=== PATIENT | male | born 1970 | race Two or more races ===

== ENCOUNTER 2022-05-08 14:22 | Emergency (ER) | payer OTHER ==
[~2022-05-08] VITALS: Ht 177.8 cm; Wt 104.3 kg
[2022-05-08] MEDS ORDERED: TOPROL XL50 M1 PO (14:32)
[2022-05-08] MEDS ORDERED: CEPACOL SORE T1 EAC1 PO (17:50)
[2022-05-08] MEDS ORDERED: FLONASE ALLERG9.9 ML NASAL (17:50)
[2022-05-08] MEDS ORDERED: ZYRTEC10 M3 PO (17:50)
== END 2022-05-08 18:24 | disposition home or self-care (01) ==
LOC: ER 14:22
DX: J30.9 Allergic rhinitis, unspecified (principal); J04.0 Acute laryngitis

== ENCOUNTER → 2023-02-24 09:18 | Outpatient (CLI) | payer OTHER ==
[~2023-02-24 09:18] MED LIST: CEPACOL SORE T1 EAC1 PO; FLONASE ALLERG9.9 ML NASAL; TOPROL XL50 M1 PO; ZYRTEC10 M3 PO
== END | disposition home or self-care (01) ==
LOC: LAB 09:18
PROVIDERS: ATTEND Internal Medicine Cardiovascular Disease
DX: E78.00 Pure hypercholesterolemia, unspecified (principal)

== ENCOUNTER 2023-08-18 13:19 | Outpatient (CLI) | payer OTHER | END 2023-08-18 13:32 | disposition home or self-care (01) | LOC: MRI 13:19 | DX: S83.222A Peripheral tear of medial meniscus, current injury, left knee, initial encounter (principal); M25.562 Pain in left knee; M25.561 Pain in right knee | CPT/HCPCS: 73721 ==

== ENCOUNTER 2024-04-05 07:12 | Outpatient (CLI) | payer OTHER ==
[2024-04-05 08:56] LABS: ALBUMIN 3.8 gm/dL (3.4-5.0); BILIRUBIN TOTAL 0.64 mg/dL (0.3-1.2); CALCIUM 9.1 mg/dL (8.5-10.1); CHOL HDL RATIO 3.6 (0-5.0); CREATININE SERUM 0.9 mg/dL (0.70-1.30); GFR 88.61; GLOBULINA 3.6 G/DL (2.4-3.5); POTASSIUM 4.05 mEq/L (3.5-5.1); TOTAL PROTEIN 7.4 gm/dL (6.4-8.2)
== END 2024-04-05 07:17 | disposition home or self-care (01) ==
LOC: LAB 07:12
PROVIDERS: ATTEND Internal Medicine Cardiovascular Disease
DX: E79.0 Hyperuricemia without signs of inflammatory arthritis and tophaceous disease (principal)

== ENCOUNTER 2025-01-15 07:04 | Outpatient (CLI) | payer OTHER ==
[2025-01-15 09:02] LABS: CALCIUM 9.5 mg/dL (8.5-10.1); CHOL HDL RATIO 3.3 (0-5.0); CREATININE SERUM 1.03 mg/dL (0.70-1.30); GFR 75.54
== END 2025-01-15 07:05 | disposition home or self-care (01) ==
LOC: LAB 07:04
PROVIDERS: ATTEND Internal Medicine Cardiovascular Disease
DX: E78.01 Familial hypercholesterolemia (principal)